=== PATIENT | female | born 1940 | race Caucasian/White ===

== ENCOUNTER 2018-08-15 11:13 | Emergency (ER) | payer OTHER ==
[~2018-08-15] VITALS: Ht 162.6 cm; Wt 63.0 kg
[2018-08-15 11:17] VITALS: BP 131/66
== END 2018-08-15 12:20 | disposition home or self-care (01) ==
LOC: ER 11:14
DX: Z48.00 Encounter for change or removal of nonsurgical wound dressing (principal)
CPT/HCPCS: 99281